=== PATIENT | male | born 1945 | race Caucasian/White ===

== ENCOUNTER 2016-06-14 07:19 | Inpatient (IN) | payer MEDICARE, BC ==
--- NOTE | 2016-06-11 14:30 | PREOPHP ---
DATE OF ADMISSION: 06/14/2016 PREOPERATIVE INTERNAL MEDICINE CONSULTATION/MEDICAL HISTORY AND PHYSICAL Patient to have surgery with Dr. Edgar Lujan on 06/14/2016. REASON FOR CONSULTATION: Consultation requested by Dr. Edgar Lujan for medical evaluation and clearance of a 70-year-old gentleman about to undergo surgery on his lumbar spine. Thank you, Dr. Lujan, for allowing us to participate in the care of this patient. 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 Patient from a medical standpoint has been relatively stable and is currently being treated for hypothyroidism and hypertension. MEDICATIONS: He takes: 1. Synthroid 100 mcg a day. 2. Valsartan HCT 160/12.5 mg. ALLERGIES: HE IS NOT ALLERGIC TO ANY MEDICATIONS. PAST MEDICAL HISTORY: Other than his prior back surgery, he had a cyst removed from one of his sinuses, had kidney stone surgery and a ureteral procedure done on the right side. Also has had a cervical spine procedures. He generally feels well and is doing relatively well. SOCIAL HISTORY: The patient is single, has no children. He quit smoking in 1976. 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 Usually has no difficulty sleeping at night. FAMILY HISTORY: Both parents are . Father at age 89 besides old age, had cancer of the bladder and kidney which eventually killed him. Mother 89 , had heart issues and of that. Three brothers are in good health and 1 sister to his knowledge is in good health. Family history of heart and cancer. He knows of no diabetes, hypertension or stroke. REVIEW OF SYSTEMS HEENT: Periodic tension headaches. CARDIORESPIRATORY: Denies any chest pain or shortness of breath. GASTROINTESTINAL: No melena or hematemesis. GENITOURINARY: No urgency or frequency. Does have occasional gastroesophageal reflux symptoms. GENITOURINARY: No urgency or frequency. MUSCULOSKELETAL: Positive for back pain. NEUROPSYCHIATRIC: Unremarkable. GENERAL HEALTH: As above. PHYSICAL EXAMINATION: VITAL SIGNS: The patient's blood pressure was 134/80, pulse was 86 and regular , respirations were 18, temperature was 98.4. Height 6 feet 1 inch, weight 252 pounds. GENERAL: The patient was noted to be a well-developed, well-nourished male, alert and cooperative, in no apparent acute distress, oriented to time, place, and person. HEAD, EARS, EYES, NOSE AND THROAT: Head was atraumatic. Eyes: Pupils were equal, reactive to light and accommodation. Fundi were benign. There was a scar on the right side of his face from prior surgery. Tympanic membranes were unremarkable. Nose was negative. Mouth was unremarkable. Fair oral hygiene was present. NECK: Supple without any rigidity. Trachea was midline. Thyroid was unremarkable. Scar was noted anteriorly. Neck veins were flat. Carotid pulses were equal. No bruits were heard. BACK: Revealed scar from prior surgery and the patient had a lot of guarding. CHEST: Symmetrical. BREASTS AND AXILLARY: Did not reveal any masses. LUNGS: Clear to percussion and auscultation. HEART: PMI was at 5th intercostal space at the midclavicular line. Regular sinus rhythm was noted. No significant murmurs, rubs, or gallops being elicited. ABDOMEN: Soft, good bowel sounds were noted. No significant organomegaly, masses, or tenderness. GENITALIA: Normal male external genitalia. RECTAL AND PROSTATIC: Per PCP up to date. EXTREMITIES: Did not reveal any clubbing, edema or cyanosis. Peripheral pulses were physiologic. Skin was moist and warm. There was mild ectopic type of dermatitis on his right lower extremity. Otherwise unremarkable. SKIN: No gross lymphadenopathy was noted. NEUROLOGIC: Grossly intact. IMPRESSION 1. Lumbar disk disease with spinal stenosis. 2. Hypertension. 3. Hypothyroidism. 4. Stable health. DISCUSSION: Review of laboratory and other data revealed the following: The patient's chemistries revealed normal electrolytes, glucose, BUN, creatinine and liver function tests, CBC, sed rate, UA, PT and PTT were unremarkable. The patient's EKG revealed nonspecific ST-T wave changes without any acute changes being noted, and the patient's bladder scan revealed a residual of 22 mL. His x-ray was unremarkable as far as any acute infiltrates being noted. DISCUSSION: Dr. Lujan, I see no contraindication to this patient undergoing current proposed surgery under desired form of anesthesia and will follow him along with you during his stay at [facility]. Thank you again, Dr. Lujan, for allowing us to participate in the care of this patient. Dictated By: COSTA ROBLES/TROY Conf#: [id number] DID#: [id number] MTDD
[2016-06-14] VITALS (19 sets, daily range): BP systolic 99–151; BP diastolic 60–87; PULSE 67–93; RESP 15–21; Ht 185.4 cm; Wt 110.0 kg
[~2016-06-14] VITALS: Ht 185.4 cm; Wt 110.0 kg
[2016-06-14] MEDS ORDERED: CEFAZOLIN 2 GM/50 ML (PMX) 50 ML IVPB SCH (08:00)
[2016-06-14] MEDS ORDERED: LACTATED RINGER'S 1,000 ML IV* SCH (08:00)
[2016-06-14] MEDS ORDERED: FENTAnyl 50 MCG/ML VIAL ONE ×2 (08:15→12:55)
[2016-06-14] MEDS ORDERED: MIDAZOLAM 1 MG/ML 2 ML INJ ONE (08:15)
[2016-06-14] MEDS ORDERED: LIDOCAINE 2% (SDV) 5 ML INJ ONE (08:15)
[2016-06-14] MEDS ORDERED: SUCCINYLCHOLINE CHLORIDE 100 MG/5 ML SYG IV ONE (08:15)
[2016-06-14] MEDS ORDERED: PROPOFOL 20 ML ONE ×2 (08:15→11:43)
[2016-06-14] MEDS ORDERED: ROCURONIUM 50 MG INJ ONE (08:15)
[2016-06-14] MEDS ORDERED: OCULAR LUBRICANT 3.5 GM OPH OINT ONE (08:20)
[2016-06-14] MEDS ORDERED: VALS1TAB76 PO (08:33)
[2016-06-14] MEDS ORDERED: LEVO100T82 PO (08:33)
[2016-06-14] MEDS ORDERED: GUAI-106 PO (08:33)
[2016-06-14] MEDS ORDERED: CELE200C PO (08:33)
[2016-06-14] MEDS ORDERED: [UNRECOGNIZED DRUG - CODE] PO (08:33)
--- NOTE | 2016-06-14 09:45 | HPN ---
Date/Time of Note Date/Time of Note DATE: 06/14/16 TIME: 09:29 Interval H&P Admission Note Pt. seen H&P reviewed: No system changes MIGUEL ESCOBEDO MD Jun 14, 2016 09:45
[2016-06-14] MEDS ORDERED: ONDANSETRON 4 MG INJ ONE ×2 (10:47→13:29)
[2016-06-14] MEDS ORDERED: DEXAMETHASONE 4 MG/ML 1 ML INJ ONE (10:47)
[2016-06-14] MEDS ORDERED: BUPIVACAINE 0.25% (MPF) 10 ML 10 ML VIAL ONE (10:49)
[2016-06-14] MEDS ORDERED: THROMBIN 5000 UNIT VIAL ONE (10:49)
[2016-06-14] MEDS ORDERED: POLYMYXIN/BACITRACIN 1L IRRIG ONE (10:49)
[2016-06-14] MEDS ORDERED: GELATIN SIZE 100 SPONGE ONE (10:49)
[2016-06-14] MEDS ORDERED: HYDROmorphONE 2 MG/ML SYG ONE (10:57)
[2016-06-14] MEDS ORDERED: PHENYLephrine (100 MCG/ML) 5ML SYG ONE (11:03)
[2016-06-14] MEDS ORDERED: EPHEDrine SULFATE 50 MG/5 ML SYG ONE (11:42)
[2016-06-14] MEDS ORDERED: FENTAnyl 50 MCG/ML VIAL IV PRN (12:00)
[2016-06-14] MEDS ORDERED: ONDANSETRON 4 MG INJ IV PRN ×2 (12:00→14:00)
[2016-06-14] MEDS ORDERED: HYDROmorphONE (0.2 MG/ML) 10ML SYG IV PRN ×2 (12:00)
[2016-06-14] MEDS ORDERED: DIPHENHYDRAMINE 50 MG INJ IV PRN (12:00)
[2016-06-14] MEDS ORDERED: METOCLOPRAMIDE 10 MG INJ IV PRN (12:00)
[2016-06-14] MEDS ORDERED: MEPERIDINE 25 MG INJ IV PRN (12:00)
[2016-06-14] MEDS ORDERED: OXYCODONE/ACETAMINOPHEN (5/325) TAB PO PRN ×2 (12:00)
[2016-06-14] MEDS ORDERED: PROCHLORPERAZINE 10 MG INJ IV PRN (12:00)
--- NOTE | 2016-06-14 12:56 | RADRPT ---
PROCEDURE: XR Lumbar Spine one view. CLINICAL INDICATION: Low back pain. Intraoperative. TECHNIQUE: Prone portable cross-table lateral. COMPARISON: No prior studies are available for comparison. FINDINGS: For the purposes of this report, the last apparent true disc level is considered to be L5-S1. Based on this, the posterior surgical instruments are present at L3, L4, and L5 spinous process levels. IMPRESSION: 1. Intraoperative imaging as described above. Call report: A call report of the findings was made to Dr. Lujan on 06/14/2016 at 1110 hours. RPTAT: QQ .Demarco Monzon MD, MD Date Time Electronically viewed and signed by .Demarco Monzon MD, on 06/14/2016 12:55 .R/
[2016-06-14] MEDS ORDERED: ALBUMIN HUMAN 5% 250 ML ONE (12:58)
[2016-06-14] MEDS ORDERED: NEOSTIGMINE 3 MG/3 ML SYRINGE ONE (13:30)
[2016-06-14] MEDS ORDERED: GLYCOPYRROLATE 1 MG INJ ONE (13:30)
[2016-06-14] MEDS: DEXTROSE 5%-0.45% NACL 1,000 ML IV SCH ×2 (13:46→21:13)
[2016-06-14] MEDS ORDERED: TRIMETHOBENZAMIDE 100 MG/ML VIAL IM PRN (14:00)
[2016-06-14] MEDS ORDERED: NACL 0.9% 3 ML SYG IV SCH (14:00)
[2016-06-14] MEDS ORDERED: ZOLPIDEM 5 MG TAB PO PRN (14:00)
[2016-06-14] MEDS ORDERED: HYDROmorphONE 0.2 MG/ML PCA IV SCH (14:00)
[2016-06-14] MEDS ORDERED: NALOXONE (0.4 MG/ML) INJ IV PRN (14:00)
[2016-06-14] MEDS ORDERED: DIAZEPAM 5 MG TAB PO PRN (14:00)
[2016-06-14] MEDS ORDERED: HYDROCODONE/APAP (5/325) TAB PO PRN (14:00)
[2016-06-14] MEDS ORDERED: BETHANECHOL 25 MG TAB PO PRN (14:00)
[2016-06-14] MEDS ORDERED: DIAZEPAM 5 MG/ML SYG IM PRN (14:00)
[2016-06-14] MEDS ORDERED: PROCHLORPERAZINE 10 MG TAB PO PRN (14:00)
[2016-06-14] MEDS ORDERED: CEPASTAT LOZENGE MT PRN (14:00)
[2016-06-14] MEDS ORDERED: AL HYDROX/MG HYDROX/SIMETH 30 ML CUP PO PRN (14:00)
[2016-06-14] MEDS ORDERED: DIPHENHYDRAMINE 50 MG CAP PO PRN (14:00)
[2016-06-14] MEDS ORDERED: ACETAMINOPHEN 325 MG TAB PO PRN (14:00)
--- NOTE | 2016-06-14 14:12 | OPPN ---
Date/Time of Note Date/Time of Note DATE: 06/14/16 TIME: 14:06 Operative/Procedure Note Pre-Operative Diagnosis 1. Lumbar spinal stenosis at L2-L3-L4 and L5 2. Epidural lipomatosis 3. Postsurgical changes at L5 Post-Operative Diagnosis Same Procedure 1. Decompressive lumbar laminectomy at L2-L3-L4 and L5 2. Excisional biopsy of epidural lipomatosis 3. Medial facetectomy and foraminotomy L2-3 L3-4 L4-5 and L5-S1 bilaterally 4. Baxano transforaminal root decompression L4 on the right 5. Revision of scar (14 cm) 6. Lateral localizing lumbar radiograph 7. Intraoperative nerve monitoring (240 minutes) Surgeon: MIGUEL ESCOBEDO MD News Operations Manager: JEREMI MIN Anesthesiologist: MEHRAN MULLER MD Findings At surgery, severe multilevel spinal stenosis from L2-L5 was confirmed. Additionally, epidural lipomatosis from L2-L5 markedly constricted the thecal sac. Blood Usage/Administration None Implants/Grafts: Not applicable Estimated blood loss: 250 - 300 ml's Drains 2 medium Hemovac drains were employed Specimens Specimens included the spinous processes of L2-L3-L4 and L5. Epidural lipomatosis tissue was also submitted for pathologic analysis Complications: None Anesthesia type: general MIGUEL ESCOBEDO MD Jun 14, 2016 14:12
--- NOTE | 2016-06-14 15:10 | OPR ---
DATE OF OPERATION: 06/14/2016 PREOPERATIVE DIAGNOSES: 1. Multilevel spinal stenosis from L2-L5. 2. Epidural lipomatosis from L2-L5. 3. Post-surgical change at L5. POSTOPERATIVE DIAGNOSES: 1. Multilevel spinal stenosis from L2-L5. 2. Epidural lipomatosis from L2-L5. 3. Post-surgical change at L5. OPERATION/PROCEDURE: On 06/14/2016 the patient underwent the followin. Central decompressive laminectomy at L2, L3, L4 and L5 (redo). 2. Excisional biopsy of epidural lipomatosis from L2-L5. 3. Medial facetectomy and foraminotomy at L2-3, L3-4, L4-5, L5-S1 bilaterally. 4. Baxano transforaminal root decompression at L4 on the right. 5. Revision of scar (14 cm). 6. Lateral localized lumbar radiograph. SURGEON: Edgar Lujan MD SNOW PLOW TRACTOR OPERATOR: Franky Bar ANESTHESIA: General endotracheal. ANESTHESIOLOGIST: María Mcclain MD ESTIMATED BLOOD LOSS: 300 mL-none replaced. DRAINS: Two medium Hemovac drains employed. COMPLICATIONS: None. PERTINENT HISTORY AND PHYSICAL: This is a 70-year-old male with persistent back and lower extremity complaints, left greater than right, which has been unrelieved by extensive conservative management . He has undergone a number of diagnostic studies including an MRI of the lumbar spine, which demon strated multilevel spinal stenosis from L2-L5 along with post-surgical change at L5 and epidural lip omatosis from L2-L5. Treatment options were discussed with the patient, who elected to proceed with surgery. OPERATIVE FINDINGS AT SURGERY: Multilevel spinal stenosis, moderate to severe in nature along with epidural lipomatosis was confirmed. The baseline intraoperative nerve monitoring revealed a decreas e in the L3 potential of 20% bilaterally, the L4 potential on the left of 40%, the L4 potential on t he right was down 60%, the L5 potential on the left was down 70%, the L5 potential on the right was down 70% and the S1 potentials were down 30% bilaterally. These all returned to normal at the compl etion of surgery. OPERATIVE PROCEDURE: With the patient in supine position after satisfactory induction of general en dotracheal anesthesia by Dr. Mcclain, the patient was turned to the prone kneeling position on the [facility] frame. All pressure points were carefully padded. Back was prepped and draped in usual steril e fashion. Athrombic pumps were applied to the legs below the knees to prevent venous stasis during and after procedure. An indwelling Dubon catheter was also placed preoperatively to facilitate anna dder drainage during and after the procedure. A 14 cm incision was carried out from L2 to the sacru m through skin and subcutaneous tissue to deep fascia after skin was infiltrated with 0.25% Marcaine without epinephrine for postoperative analgesia. The patient's previous scar at L5 was used for an atomic localization. Superficial retractors were placed and hemostasis secured with electrocautery. Throughout the procedure, copious amounts of antibacterial irrigating solution were used to period ically irrigate the wound. The fascia was incised in midline with a hot knife and a bilateral subpe riosteal dissection carried out from L2 to the sacrum. Deep retractors were placed and deep hemosta sis secured with electrocautery. A second intraoperative radiograph was taken with Walker clamps pl aced in what was felt to be the spinous process of L3, L4, and L5 and this was confirmed on the x-ra y. A central decompressive laminectomy at L3, L4, and L5 was then carried out using a Les right -angle bone rongeur, Leksell rongeur, Kerrison punches and curettes. Ligamentum flavum was incised with sharp dissection. The operating microscope was moved into place. A medial facetectomy and for aminotomy was accomplished using small hand osteotome, mallet, Kerrison punches and curettes. Thick epidural lipomatosis was evident around throughout the canal from L2 to the sacrum and this was exc ised with a Nobles dissector and pituitary rongeurs and sent to laboratory for pathologic study. A t this point, there was still distal foraminal stenosis at L4 on the right, and the Baxano instrumen tation was brought onto the field. The Ipsi probe was placed into the foramen and a guidewire passe d in the usual fashion. The neuro probe was then used to isolate the exiting L4 nerve root. With t his having been assured, a 7.5 mm Baxano rasp was inserted into the foramen and multiple reciprocati ons carried out to enlarge the posterior aspect of the foramen. The instrumentation was withdrawn. The foramen was flushed with 20 mL of irrigating solution and hemostasis secured with bipolar elect rocautery on low setting. Anesthesiologist then asked to perform a Valsalva maneuver at 40 mmHg and no spinal fluid leakage was noted. The wound was then closed in layers over 2 medium Hemovac drain s, one below the fascia, one above the fascia using #1 Vicryl zyluol-mh-fgnea approximating sutures in deep paralumbar musculature and deep fascia of back using #1 Stratafix sutures on the deep paralu mbar musculature and deep fascia of the back, 2-0 Stratafix sutures on the subcutaneous tissue and a 4-0 Maxon subcuticular cosmetic closing suture on the skin. Dermabond and sterile compressive dres sings were applied. Patient having tolerated procedure well, was then turned to supine position ont o his bed and extubated by Dr. Mcclain. He was transported to recovery room in satisfactory condition . At the conclusion of the procedure, sponge, instrument, and needle counts were all correct. NEED FOR DISTRICT OPERATIONS MANAGER: During this spinal surgical procedure, my medical assistant instructor was used to retrac t and protect the spinal nerves and dural sac. My medical assistant instructor also employed the suction catheters to e vacuate blood from the surgical field to improve visualization of the neural structures. The assista nt was medically necessary to facilitate the completion of the surgery in a safe and expeditious man ner. State of [place] regulations, as well as hospital bylaws, preclude the use of non-licensed [facility] care personnel such as operating room technicians, to perform these functions. Throughout the procedure, neural monitoring was carried out by [employer] including EMG, SSEP and MEP monitoring of the L3, L4, L5 and S1 nerve roots bilaterally along with s jake cord potentials. These were interpreted by neurologist interpreted by a neurologist employed by [employer]. Dictated By: EDGAR LUJAN MD TM/NTS Conf#: [id number] DID#: [id number] CC: COSTA BALLESTEROS MD;*[facility]*
--- NOTE | 2016-06-14 17:00 | CONS ---
DATE OF ADMISSION: 06/14/2016 DATE OF CONSULTATION: 06/14/2016 TYPE OF CONSULTATION: Postoperative consult followup. The patient had surgery by Dr. Edgar Lujan for lumbar stenosis on 06/14/2016. HISTORY OF PRESENT ILLNESS: Patient seen in the recovery room, alert, recognizes me. No specific co mplaints other than feeling somewhat drowsy postoperatively. PHYSICAL EXAMINATION: VITAL SIGNS: Reveal the following: The patient's blood pressure was 133E/66, pulse 96, respirations 16, temperature 98.4, O2 saturation 96%. HEENT: Unremarkable. LUNGS: Clear to percussion. COR: RSR. ABDOMEN: Soft. IMPRESSION: 1. Status lumbar spine surgery. 2. Hypertension. 3. Hypothyroidism. DISCUSSION: Preoperatively, the patient was on Synthroid as well as antihypertensive medication. Th is will be continued during his stay at [facility]. CONDITION POSTOPERATIVELY: Relatively stable. Thank you again, Dr. Lujan, for allowing us to participate in the care of this patient. Dictated By: COSTA ROBLES/TROY Conf#: [id number] DID#: [id number]
[2016-06-14] MEDS: RANITIDINE 150 MG TAB PO SCH (21:12)
[2016-06-14] MEDS: CEFAZOLIN 1 GM/50 ML (PMX) 50 ML IVPB SCH ×2 (23:50→23:51)
[2016-06-15] MEDS: CEFAZOLIN 1 GM/50 ML (PMX) 50 ML IVPB SCH ×2 (05:27→13:05)
[2016-06-15] MEDS: DEXTROSE 5%-0.45% NACL 1,000 ML IV SCH ×3 (05:28→10:54)
[2016-06-15] MEDS: LEVOTHYROXINE 100 MCG TAB PO SCH (05:28)
[2016-06-15 05:44] LABS: POTASSIUM 4.1 mmol/L (3.5-5.1)
[2016-06-15 05:48] LABS: CALCIUM 8.7 mg/dl (8.4-10.2)
[2016-06-15 06:16] LABS: HEMATOCRIT 39.7 % (42.0-52.0); HEMOGLOBIN 13.6 g/dl (14.0-18.0)
--- NOTE | 2016-06-15 07:25 | PN ---
Date/Time of Note Date/Time of Note DATE: 06/15/16 TIME: 07:23 Assessment/Plan Lines/Catheters IV Catheter Type (from Nrsg): Saline Lock Dubon in Place (from Nrsg): Yes Subjective 24 Hr Interval Summary The patient is postop day #1 following a multilevel decompressive laminectomy from L2-L5. He is resting comfortably in bed. Examination reveals neurovascular structures are intact distally. His morning labs are unremarkable. He will be seen by physical therapy 3-4 times per day until cleared for discharge. His Hemovac this morning had 120 cc of blood and will be left in place. Pain Control: well controlled Exam/Review of Systems Vital Signs Vitals Vital Signs Date Time Temp Pulse Resp B/P Pulse Ox O2 Delivery O2 Flow Rate FiO2 06/15/16 05:00 18 06/14/16 20:30 2.0 06/14/16 19:11 97.5 75 129/71 96 06/14/16 16:15 Nasal Cannula Intake and Output 06/14/16 06/14/16 06/15/16 15:00 23:00 07:00 Intake Total 2900 ml 2200 ml Output Total 805 ml 15 ml 1920 ml Balance 2095 ml -15 ml 280 ml Results Result Diagram: 06/15/16 0420 06/15/16 0420 MIGUEL ESCOBEDO MD Jun 15, 2016 07:25
[2016-06-15 07:57] VITALS: BP 106/66; RESP 18
[2016-06-15] MEDS: HYDROCODONE/APAP (5/325) TAB PO PRN ×2 (10:08→20:47)
[2016-06-15] MEDS: FERROUS SULFATE (EC) 325 MG TAB PO SCH ×3 (10:08→20:44)
[2016-06-15] MEDS: DOCUSATE SODIUM 100 MG CAP PO SCH ×2 (10:08→20:43)
[2016-06-15] MEDS: ASCORBIC ACID 500 MG TAB PO SCH ×2 (10:09→20:43)
[2016-06-15] MEDS: RANITIDINE 150 MG TAB PO SCH ×2 (10:09→20:43)
[2016-06-15] MEDS: VALSARTAN 160 MG TAB PO SCH (10:09)
[2016-06-15] MEDS: BETHANECHOL 25 MG TAB PO PRN ×2 (10:10→17:05)
--- NOTE | 2016-06-15 10:56 | CONS ---
DATE OF ADMISSION: 06/14/2016 DATE OF CONSULTATION: 06/15/2016 TYPE OF CONSULTATION: Postop consultation followup. TIME SEEN: Approximately 7:30 a.m. HISTORY OF PRESENT ILLNESS: The patient is alert, says he had a good night, had gotten up after surgery yesterday, other than his back pain his feet feel much better. He feels relatively good. VITAL SIGNS: The patient's vital signs revealed the following: The patient's blood pressure 129/71. Patient is afebrile, respiratory rate 18, O2 saturation 96%,, pulse rate is 75. HEENT: Unremarkable. LUNGS: Clear to percussion and auscultation. HEART: Reveals a regular rhythm. IMPRESSION: 1. Status post lumbar spine surgery. 2. Hypothyroidism. 3. Hypertension. DISCUSSION: Review of laboratory and other data reveals the following: Hemoglobin of 13.6, hematocrit 39.7. Chemistries revealed a normal Chem-7 including electrolytes, BUN, creatinine. His glucose nonfasting is 136. DISCUSSION: Plan is per Dr. Lujan. Patient will be ambulating today and his medications have been continued. Condition at this point is stable. Dictated By: COSTA ROBLES/TROY Conf#: [id number] DID#: [id number] MTDD
[2016-06-15 12:37] LABS: ADD UMIC YES; URINE BILIRUBIN (Dip) NEGATIVE (NEGATIVE); URINE BLOOD (Dip) 2+ (NEGATIVE); URINE COLOR LT. YELLOW (YELLOW); URINE KETONES (Dip) NEGATIVE (NEGATIVE); URINE LEUKOCYTE ESTERASE (Dip) NEGATIVE (NEGATIVE); URINE NITRITE (Dip) NEGATIVE (NEGATIVE); URINE TOTAL PROTEIN (Dip) NEGATIVE (NEGATIVE); URINE UROBILINOGEN (Dip) 0.2 E.U./dL (0.1-1.0)
[2016-06-15 20:54] VITALS: BP 118/65; RESP 20
[2016-06-16] MEDS: LEVOTHYROXINE 100 MCG TAB PO SCH (05:13)
[2016-06-16] MEDS: DEXTROSE 5%-0.45% NACL 1,000 ML IV SCH (05:46)
--- NOTE | 2016-06-16 06:56 | PN ---
Date/Time of Note Date/Time of Note DATE: 06/16/16 TIME: 06:55 Assessment/Plan Lines/Catheters IV Catheter Type (from Nrs): Saline Lock Dubon in Place (from Nrs): Yes Subjective 24 Hr Interval Summary The patient is postop day #2 following a multilevel decompressive laminectomy. He is doing well with his physical therapy. His Hemovac had minimal drainage and was removed. His incision is clean and dry and was redressed. I anticipate he will be discharged from the hospital later today. I gave him strict discharge precautions and instructions. He will follow-up in the office in 1-2 weeks. His examination today reveals neurovascular structures to be intact distally Exam/Review of Systems Vital Signs Vitals Vital Signs Date Time Temp Pulse Resp B/P Pulse Ox O2 Delivery O2 Flow Rate FiO2 06/15/16 20:54 98.1 91 20 118/65 94 06/14/16 20:30 2.0 06/14/16 16:15 Nasal Cannula Intake and Output 06/15/16 06/15/16 06/16/16 15:00 23:00 07:00 Intake Total 1150 ml 800 ml Output Total 440 ml 3 ml Balance 710 ml 797 ml Results Result Diagram: 06/15/16 0420 06/15/16 0420 MIGUEL ESCOBEDO MD Jun 16, 2016 06:56
[2016-06-16 08:05] VITALS: BP 129/83; RESP 18
[2016-06-16] MEDS: VALSARTAN 160 MG TAB PO SCH (09:28)
[2016-06-16] MEDS: FERROUS SULFATE (EC) 325 MG TAB PO SCH ×2 (09:28→13:43)
[2016-06-16] MEDS: RANITIDINE 150 MG TAB PO SCH (09:28)
[2016-06-16] MEDS: ASCORBIC ACID 500 MG TAB PO SCH (09:28)
[2016-06-16] MEDS: DOCUSATE SODIUM 100 MG CAP PO SCH (09:28)
[2016-06-16] MEDS: HYDROCODONE/APAP (5/325) TAB PO PRN ×2 (09:29→13:44)
--- NOTE | 2016-06-16 11:18 | PN ---
DATE: 06/16/2016 SUBJECTIVE: The patient is alert, had a good night, got out of bed well yesterday. Catheter has be en removed, feeling relatively well. PHYSICAL EXAMINATION VITAL SIGNS: Revealed the following last set, temperature 98.1, pulse 90, respiration 20, blood pre ssure 118/65 and O2 sat 94% on room air. HEENT: Unremarkable. LUNGS: Clear. HEART: Reveals a regular rhythm. ABDOMEN: Reveals some slight abdominal distension, otherwise unremarkable. IMPRESSION: 1. Status post lumbar spine surgery. 2. Hypertension. 3. Hypothyroidism. PLAN: 1. Per Dr. Edgar Lujan, the patient will be ambulated more today. Hopefully, if he does well, he will be going home after cleared by physical therapy. 2. The patient has been instructed on his home medications and how we should resume them. Thank you again, Dr. Lujan, for allowing us to participate in care of this patient. Dictated By: COSTA ROBLES/TROY Conf#: [id number] DID#: [id number]
--- NOTE | 2016-06-16 16:23 | PN ---
Date/Time of Note Date/Time of Note DATE: 06/16/16 TIME: 16:22 Assessment/Plan Lines/Catheters IV Catheter Type (from Nrsg): Saline Lock Dubon in Place (from Nrsg): Yes Subjective 24 Hr Interval Summary Pt did well today. He has been ambulating and is cleared for D/c. D/c instructions reviewed with pt. Follow up with Dr. Lujan in 2 weeks. Exam/Review of Systems Vital Signs Vitals Vital Signs Date Time Temp Pulse Resp B/P Pulse Ox O2 Delivery O2 Flow Rate FiO2 06/16/16 08:05 99.4 81 18 129/83 95 06/14/16 20:30 2.0 06/14/16 16:15 Nasal Cannula Intake and Output 06/15/16 06/15/16 06/16/16 15:00 23:00 07:00 Intake Total 1150 ml 800 ml Output Total 440 ml 3 ml Balance 710 ml 797 ml Results Result Diagram: 06/15/16 0420 06/15/16 0420 JEREMI MIN Jun 16, 2016 16:23
--- NOTE | 2016-06-21 11:36 | DS ---
Date/Time of Note Date/Time of Note DATE: 06/21/16 TIME: 11:34 Discharge Summary Admission/Discharge Info Admit Date/Time Jun 14, 2016 at 07:19 Discharge Date/Time Jun 16, 2016 at 16:20 Final Diagnosis 1. Multilevel spinal stenosis from L2-L5. 2. Epidural lipomatosis from L2-L5. 3. Post-surgical change at L5. Patient Condition: Fair Hospital Course Pt did well during his hospital stay. His diet and activity were advanced as tolerated. Pain was well controlled. He was discharged to home in good condition on POD #2 Home Meds Reported Medications Guaifenesin/Pseudoephedrne HCl (Mucinex D ER 1,200-120 mg Tab) 1 Each Tab.er.12h , 1 EACH PO, TAB 06/14/16 Niacin* (Niacin* ER) 250 Mg Capsr, 250 MG PO DAILY, CAP 06/14/16 Celecoxib* (Celebrex*) 200 Mg Capsule, 200 MG PO DAILY, CAP 06/14/16 Valsartan-Hydrochlorothiazide (Valsartan-HCTZ) 160-12.5 Mg Tablet, 1 TAB PO DAILY, #30 TAB 06/14/16 Levothyroxine Sodium* (Levoxyl*) 100 Mcg Tablet, 100 MCG PO BEFORE BREAKFAST, # 30 TAB 06/14/16 Follow-up Plan Follow up with Dr. Lujan in 2 weeks JEREMI MIN Jun 21, 2016 11:36
== END 2016-06-16 16:20 | disposition home or self-care (01) | DRG 520 ==
LOC: REC 07:19 → MS1 15:01
PROVIDERS: ADMIT Orthopaedic Surgery; ATTEND Orthopaedic Surgery
PROC: 00BT0ZZ Excision of Spinal Meninges, Open Approach (ICD-10-PCS; 2016-06-14)
PROC: 01NB0ZZ Release Lumbar Nerve, Open Approach (ICD-10-PCS; principal; 2016-06-14 10:00)
DX: M48.07 Spinal stenosis, lumbosacral region (principal); I10 Essential (primary) hypertension; E03.9 Hypothyroidism, unspecified; E88.2 Lipomatosis, not elsewhere classified
CPT/HCPCS: 72020; 80048; 81001; 81003; 85014; 85018; 86850; 86900; 86901; 86920; 87086; 88304; 97116; 97162; 97530; J0330; J0690; J1100; J1170; J2250; J2370; J2405; J2710; J3010; J7042; P9045